=== PATIENT | male | born 1965 | race Caucasian/White ===

== ENCOUNTER 2017-06-14 03:53 | Emergency (ER) | payer MEDICAID ==
[2017-06-14 04:23] VITALS: BP 120/80
[2017-06-14] MEDS ORDERED: predniSONE 20 MG Tab PO ONE (04:27)
[2017-06-14] MEDS ORDERED: diphenhydrAMINE 25 MG Cap PO ONE (04:28)
--- NOTE | 2017-06-14 04:38 | EDM.PDOC ---
ED HPI GENERAL MEDICAL PROBLEM - General Chief Complaint: Allergic Reaction Stated Complaint: REACTION Time Seen by Provider: 06/14/17 04:20 Source of Information: Reports: Patient History Limitations: Reports: No Limitations - History of Present Illness INITIAL COMMENTS - FREE TEXT/NARRATIVE: 51 yo male with hives since Monday. Has been taking cetirizine and diphenhydramine inconsistently. Has not had diphenhydramine now for a couple days. Hives worse tonight so comes to the ER. No difficulty breathing or swallowing. Ate a mock crab salad just before onset. Onset Date: 06/11/17 Duration: Day(s): Location: Reports: Generalized Quality: Reports: Other (itchy) Severity: Moderate Improves with: Reports: Other (antihistamines) Worsens with: Reports: None Context: Reports: Other (? 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: Reports: Other (see below) (cetirizine yesterday.) - Related Data Allergies Allergy/AdvReac Type Severity Reaction Status Date / Time No Known Allergies Allergy Verified 06/14/17 04:06 Home Meds: Home Meds Allopurinol [Zyloprim] 10 mg PO ASDIRECTED PRN 06/14/17 [History] Indomethacin 25 mg PO ASDIRECTED PRN 06/14/17 [History] Prednisone [IMW: predniSONE] 20 mg PO BID #10 tab 06/14/17 [Rx] Past Medical History Other Immunologic History: GOUT Social & Family History - Tobacco Use Smoking Status *Q: Never Smoker ED ROS ALLERGIC REACTION - Review of Systems Review Of Systems: See Below Constitutional: Reports: No Symptoms HEENT: Reports: No Symptoms Respiratory: Reports: No Symptoms Cardiovascular: Reports: No Symptoms GI/Abdominal: Reports: No Symptoms : Reports: No Symptoms Musculoskeletal: Reports: No Symptoms Skin: Reports: Erythema, Urticaria Neurological: Reports: No Symptoms ED EXAM GENERAL NO PERIP PULSE - Physical Exam Exam: See Below Exam Limited By: No Limitations General Appearance: Alert, WD/WN, No Apparent Distress Eye Exam: Bilateral Eye: Normal Inspection Ears: Normal External Exam, Normal Canal, Hearing Grossly Normal Nose: Normal Inspection, Normal Mucosa, No Blood Throat/Mouth: Normal Inspection, Normal Lips, Normal Oropharynx, Normal Voice, No Airway Compromise Head: Atraumatic, Normocephalic Neck: Normal Inspection Respiratory/Chest: No Respiratory Distress, Lungs Clear, Normal Breath Sounds, No Accessory Muscle Use Cardiovascular: Regular Rate, Rhythm, No Edema Extremities: Normal Inspection Neurological: Alert, Oriented, CN II-XII Intact, Normal Cognition, No Motor/ Sensory Deficits Psychiatric: Normal Affect, Normal Mood Skin Exam: Warm, Dry, Intact, Erythema, Other (diffuse hives) Lymphatic: No Adenopathy Course - Vital Signs Text/Narrative:: diphenhydramine 75 mg po, prednisone 20 mg po Last Recorded V/S: Last Vital Signs Temp 36.4 C 06/14/17 04:04 Pulse 87 06/14/17 04:04 Resp 15 06/14/17 04:04 BP 120/80 06/14/17 04:04 Pulse Ox 94 L 06/14/17 04:04 - Orders/Labs/Meds Meds: Medications Discontinued Medications Generic Name Dose Route Start Last Admin Trade Name Kailashq PRN Reason Stop Dose Admin Diphenhydramine HCl 75 mg 06/14/17 04:28 Benadryl PO 06/14/17 04:29 ONETIME ONE Prednisone 20 mg 06/14/17 04:27 Prednisone PO 06/14/17 04:28 ONETIME ONE Departure - Departure Time of Disposition: 04:39 Disposition: Home, Self-Care 01 Condition: Good Clinical Impression: Urticaria - Discharge Information Prescriptions: Prednisone [IMW: predniSONE] 20 mg PO BID #10 tab Referrals: Shay Vegas MD [Primary Care Provider] - Forms: ED Department Discharge Care Plan Goals: Take cetirizine 10 mg daily. Take diphenhydramine 50-75 mg every 4-6 hrs as needed for hives. Take prednisone as directed until gone. Avoid any seafood. Recheck with your doctor later this week for recheck. Return if worse.
== END 2017-06-14 04:51 | disposition home or self-care (01) ==
LOC: JP.ED 03:53
DX: L50.9 Urticaria, unspecified (principal)
CPT/HCPCS: 99283; A9270